=== PATIENT | male | born 1955 | race Caucasian/White ===

== ENCOUNTER → 2018-04-07 07:49 | Outpatient (CLI) | payer OTHER ==
--- NOTE | ~2018-04-07 | ST ---
PATIENT:KARLOS GORE MEDICAL RECORD: [id number] SEX: M LOCATION:[facility] ORDER #: ADMISSION DATE: 04/07/18 AGE OF PATIENT: 62 REFERRING PHYSICIAN: INTERPRETING PHYSICIAN: GABY PAINTER MD DATE OF SERVICE: 04/07/2018 PROCEDURE: Nuclear stress test. INDICATION: Chest pain, abnormal ECG. PROCEDURE IN DETAIL: He was exercised on standard Simone protocol for 7 minutes 30 seconds, terminated due to achievement of maximum target heart rate response with 33 mCi of sestamibi were used at peak stress, 11.0 mCi were used previously for rest images. FINDINGS: Gated SPECT reveals a preserved ejection fraction at 59% with good wall motion and thickening and brightening throughout all segments. SPECT IMAGING: Sestamibi is used as myocardial perfusion agent. There is homogeneous uptake throughout all segments at rest and stress with no evidence of inducible ischemia or previous infarction. OVERALL IMPRESSION: 1. This is a normal nuclear stress test with no evidence of inducible ischemia or previous infarction. 2. Gated SPECT reveals a preserved ejection fraction greater than 50% in this patient with ongoing symptomatology. The current scan does not suggest the presence of hemodynamically significant coronary artery disease. Evaluate noncardiac etiology of chest pain. TRANSINT:[id number] Voice Confirmation ID: [id number] DOCUMENT ID: [id number] GABY PAINTER MD at 1925 CC: KOLE ZIMMER DO [id number] DICTATION DATE: 04/08/18 1421 EMERGENCY VETERINARY ASSISTANT: 04/08/18 2114 DEP CLI 04/07/18 [facility] [address] [place] [address]
== END | disposition home or self-care (01) ==
LOC: D.HCCARDIO 07:49
DX: I25.119 Atherosclerotic heart disease of native coronary artery with unspecified angina pectoris (principal)